=== PATIENT | male | born 1950 | race Caucasian/White ===

== ENCOUNTER 2016-06-21 17:43 | Emergency (ER) | payer OTHER, SELFPAY ==
[2016-06-21] MEDS ORDERED: ALBUTEROL SULFATE 2.5 MG/3 ML VIAL NEB ONE ×2 (17:46→18:20)
[2016-06-21 18:04] VITALS: TEMP 97.8
[2016-06-21] MEDS ORDERED: IPRATROPIUM/ALBUTEROL 3 ML VIAL NEB ONE (18:35)
[2016-06-21] MEDS ORDERED: ASPIRIN TABLET 325 MG TAB PO ONE (18:40)
[2016-06-21] MEDS ORDERED: methylPREDNISolone SODIUM SUC 125 MG/2 ML VIAL IV ONE (19:13)
--- NOTE | 2016-06-21 19:17 | ED.PDOC ---
History of Present Illness - General Chief Complaint: Chest Pain/MS Stated Complaint: chest pain,sob Time Seen by Provider: 06/21/16 19:12 Source: patient - History of Present Illness Initial Comments: Favio 66 y/o male with history of chronic smoking 1-2 ppd stated that for the last one week starting to get sob and gradually got worse today with sharp pleuritic chest pains.He stated that he has history of copd using inhalers but not getting better. Timing/Duration: other - 168 hours ago Severity: moderate Improving Factors: nothing Worsening Factors: other - smoking Associated Symptoms: chest pain, cough, shortness of breath Allergies/Adverse Reactions: Allergies NO KNOWN ALLERGY Allergy (Unverified 10/09/13 08:37) Home Medications: Ambulatory Orders Albuterol Sulfate Nebs [Proventil Nebs] 2.5 mg INH PRN 06/21/16 Azithromycin [Zithromax Z-Nito] 1 ea PO DAILY #1 pack 06/21/16 Lansoprazole [Prevacid] 30 mg PO DAILY 06/21/16 predniSONE [Prednisone] 10 mg PO BID #20 tab 06/21/16 Review of Systems - Review of Systems Constitutional: States: no symptoms reported EENTM: States: no symptoms reported Respiratory: States: see HPI, cough, wheezing Cardiology: States: see HPI Gastrointestinal/Abdominal: States: no symptoms reported Genitourinary: States: no symptoms reported Musculoskeletal: States: no symptoms reported Neurological: States: no symptoms reported Endocrine: States: no symptoms reported Hematologic/Lymphatic: States: no symptoms reported Past Medical History (General) - Patient Medical History Hx Seizures: No Hx Stroke: No Hx Dementia: No Hx Asthma: No Hx of COPD: Yes Hx Cardiac Disorders: No Hx Congestive Heart Failure: No Hx Pacemaker: No Hx Hypertension: No Hx Thyroid Disease: No Hx Diabetes: No Hx Gastroesophageal Reflux: Yes Hx Renal Disease: No Hx of HIV: No Hx MRSA: No MRSA Source:: Wound Surgical History: no surgical history - Vaccination History Hx Influenza Vaccination: No Hx Pneumococcal Vaccination: No - Social History Hx Tobacco Use: Yes - Activities of Daily Living Patient Lives Alone: No - family Grooming Ability: Independent Eating (Feeding) Ability: Independent Toileting Ability: Independent Family Medical History - Family History Mother Family History: No Known Hx Family Asthma: Yes - copd Hx Family Cancer: Yes - dad unkown type Physical Exam - Physical Exam General Appearance: Alert, No apparent distress Eye Exam: bilateral normal Ears, Nose, Throat: hearing grossly normal, normal ENT inspection, normal pharynx Neck: non-tender, full range of motion, supple Respiratory: chest non-tender, decreased breath sounds, wheezing, other - speaks in full sentences Cardiovascular/Chest: normal peripheral pulses, regular rate, rhythm, no edema, no gallop, no JVD Peripheral Pulses: radial,right: 2+, radial,left: 2+ Gastrointestinal/Abdominal: normal bowel sounds, non tender, soft, no organomegaly Back Exam: normal inspection, no CVA tenderness Extremity: normal range of motion, non-tender, normal inspection, no pedal edema , no calf tenderness Neurologic: no motor/sensory deficits, alert Skin Exam: normal color, warm/dry Lymphatic: no adenopathy Progress - Results/Orders Results/Orders: 06/21/16 18:30 EKG STAT 06/21/16 18:40 IV Care:Saline Lock per Protoc QSHIFT Telemetry .ONCE Pulse Ox Stat Laboratory Results WBC 12.5 K/mm3 (4.8-10.8) H 06/21/16 18:00 RBC 4.83 M/mm3 (4.70-6.10) 06/21/16 18:00 Hgb 14.6 gm/dL (14.0-18.0) 06/21/16 18:00 Hct 43.8 % (42.0-52.0) 06/21/16 18:00 MCV 90.8 fl (80.0-94.0) 06/21/16 18:00 MCH 30.3 pg (27.0-31.0) 06/21/16 18:00 MCHC 33.3 g/dL (33.0-37.0) 06/21/16 18:00 RDW 13.9 % (11.5-14.5) 06/21/16 18:00 Plt Count 351 K/mm3 (130-400) 06/21/16 18:00 MPV 7.9 fl (7.40-10.4) 06/21/16 18:00 Absolute Neuts (auto) 9.90 K/uL (1.8-6.8) H 06/21/16 18:00 Absolute Lymphs (auto) 1.80 K/uL (1.0-3.4) 06/21/16 18:00 Absolute Monos (auto) 0.70 K/uL (0.2-0.8) 06/21/16 18:00 Absolute Eos (auto) 0.10 K/uL (0.0-0.4) 06/21/16 18:00 Absolute Basos (auto) 0.00 K/uL (0.0-0.1) 06/21/16 18:00 Neutrophils % 79.3 % (42.0-78.0) H 06/21/16 18:00 Lymphocytes % 14.1 % (20.0-50.0) L 06/21/16 18:00 Monocytes % 5.5 % (2.0-9.0) 06/21/16 18:00 Eosinophils % 0.8 % (1.0-5.0) L 06/21/16 18:00 Basophils % 0.3 % (0.0-2.0) 06/21/16 18:00 PT 12.6 SECONDS (9.4-12.5) H 06/21/16 18:00 INR 1.120 06/21/16 18:00 PTT (SP) 36.6 SECONDS (25.1-36.5) H 06/21/16 18:00 D-Dimer, Quantitative < 230 ng/mL (0-230) 06/21/16 18:00 Sodium 138 mmol/L (135-145) 06/21/16 18:00 Potassium 4.6 mmol/L (3.6-5.0) 06/21/16 18:00 Chloride 98 mmol/L (101-111) L 06/21/16 18:00 Carbon Dioxide 31 mmol/L (21-31) 06/21/16 18:00 Anion Gap 13.6 (12-18) 06/21/16 18:00 BUN 20 mg/dL (7-18) H 06/21/16 18:00 Creatinine 1.09 mg/dL (0.6-1.3) 06/21/16 18:00 BUN/Creatinine Ratio 18.3 (10-20) 06/21/16 18:00 Random Glucose 92 mg/dL (70-105) 06/21/16 18:00 Serum Osmolality 277.9 mOsm/L (275-295) 06/21/16 18:00 Calcium 9.5 mg/dL (8.4-10.2) 06/21/16 18:00 Magnesium 1.9 mg/dL (1.8-2.5) 06/21/16 18:00 Total Bilirubin 0.6 mg/dL (0.2-1.0) 06/21/16 18:00 Direct Bilirubin 0.1 mg/dL (0-0.2) 06/21/16 18:00 Indirect Bilirubin 0.5 mg/dL (0.2-0.8) 06/21/16 18:00 AST 25 IU/L (10-42) 06/21/16 18:00 ALT 27 IU/L (10-60) 06/21/16 18:00 Alkaline Phosphatase 120 IU/L (42-121) 06/21/16 18:00 Creatine Kinase 127 IU/L (38-174) 06/21/16 18:00 CK-MB (CK-2) 6.8 ng/mL (0.0-4.4) H* 06/21/16 18:00 CK-MB (CK-2) % Not Reportable 06/21/16 18:00 Troponin I < 0.02 ng/mL (0.01-0.05) 06/21/16 19:40 B-Natriuretic Peptide 79.9 pg/ml (0-100) 06/21/16 18:00 Serum Total Protein 7.6 gm/dL (6.4-8.2) 06/21/16 18:00 Albumin 3.9 g/dl (3.2-5.5) 06/21/16 18:00 Smoking cessation was emphasized advised its the only treatment for his condition. - EKG/XRAY/CT EKG: Sinus, Tachy, no ST T wave changes Comments: heart rate 110 XRAY: chest - copd changes w/lung scarring Departure - Departure Clinical Impression: COPD exacerbation Dyspnea Qualifiers: Dyspnea type: unspecified Qualifier Code: (R06.00) Dyspnea, unspecified Time of Disposition: 20:51 Disposition: Discharge to Home or Self Care Condition: Fair Departure Forms: ED Discharge - Pt. Copy, Patient Portal Self Enrollment Instructions: DI for Chronic Obstructive Pulmonary Disease, Smoking Cessation for Older Adults: It's Not Too Late!, Serious Ways to Stop Smoking, Smoking Cessation Drugs: Nicotine Replacement Products Prescriptions: predniSONE [Prednisone] 10 mg PO BID #20 tab Azithromycin [Zithromax Z-Nito] 1 ea PO DAILY #1 pack Home Medications: Ambulatory Orders Albuterol Sulfate Nebs [Proventil Nebs] 2.5 mg INH PRN 06/21/16 Azithromycin [Zithromax Z-Nito] 1 ea PO DAILY #1 pack 06/21/16 Lansoprazole [Prevacid] 30 mg PO DAILY 06/21/16 predniSONE [Prednisone] 10 mg PO BID #20 tab 06/21/16 Additional Instructions: Continue with albuterol MDI,Follow up with primary md 06/22 call clinic for appointment ER if symptoms worsens
--- NOTE | 2016-06-21 20:16 | RAD ---
EXAM DESCRIPTION: Chest,1 View CLINICAL HISTORY: 66 years, Male, sob COMPARISON: Chest x-ray dated 10/09/2013. FINDINGS: A single frontal chest radiograph was performed. The lungs are hyperinflated with splaying of the pulmonary structures in the upper lobes and a scarlike opacity in the caudal RIGHT upper lobe. The costophrenic sulci are sharp. The cardiac silhouette, hilar regions, trachea, soft tissues and bony structures are unremarkable. In the interval since the prior study, the emphysema and RIGHT upper lobe scarring has supervened. IMPRESSION: Marked emphysema with suspected RIGHT upper lobe scarring, new since 10/09/2013. Electronically signed by: Josy Lynn MD 06/21/2016 8:15 PM CDT
[2016-06-21] MEDS ORDERED: cefTRIAXone SODIUM 1 GM VIAL IM ONE (20:49)
[2016-06-21] MEDS ORDERED: AZITHROMYCIN 250 MG TAB PO ONE (20:49)
[2016-06-21] MEDS ORDERED: LIDOCAINE 1% 10 ML VIAL INJ ONE (21:18)
[2016-06-21 22:20] VITALS: BP 131/81; O2SAT 94
== END 2016-06-21 22:20 | disposition home or self-care (01) ==
LOC: ER 17:43
DX: J44.1 Chronic obstructive pulmonary disease with (acute) exacerbation (principal); R06.00 Dyspnea, unspecified; F17.200 Nicotine dependence, unspecified, uncomplicated; K21.9 Gastro-esophageal reflux disease without esophagitis; Z79.899 Other long term (current) drug therapy

== ENCOUNTER → 2016-10-12 | Outpatient (CLI) | payer SELFPAY ==
--- NOTE | 2016-10-12 15:06 | RAD ---
EXAM DESCRIPTION: Chest,2 Views CLINICAL HISTORY: 66 years Male, COUGHING UP BLOOD COMPARISON: 21 June 2016 TECHNIQUE: PA/lateral FINDINGS: Right upper lobe parenchymal scarring is observed. Bullous emphysema is noted. The heart is within range of normal. No pleural fluid is seen. The chest is hyperexpanded. IMPRESSION: Findings of bullous emphysema are observed. There is been no significant interval change from the prior exam. No acute parenchymal pathology is detected. Electronically signed by: Christian Ludwig MD 10/12/2016 3:06 PM CDT
== END | disposition home or self-care (01) ==
LOC: RAD 10:10
PROVIDERS: ATTEND Nurse Practitioner Family
DX: R04.2 Hemoptysis (principal)

== ENCOUNTER 2017-06-04 11:10 | Emergency (ER) | payer MEDICARE ==
[2017-06-04 11:28] VITALS: TEMP 96.8
[2017-06-04] MEDS ORDERED: ASPIRIN TABLET 325 MG TAB PO ONE (11:34)
[2017-06-04] MEDS ORDERED: SODIUM CHLORIDE 0.9% (FLUSH) 10 ML SYG IV PRN (11:34)
[2017-06-04] MEDS ORDERED: methylPREDNISolone SODIUM SUC 125 MG/2 ML VIAL IV ONE (11:36)
[2017-06-04] MEDS ORDERED: IPRATROPIUM/ALBUTEROL 3 ML VIAL NEB ONE ×2 (11:36→13:34)
[2017-06-04] MEDS: NITROGLYCERIN 0.4 MG 25 EA TAB SL ONE ×3 (11:40→12:45)
--- NOTE | 2017-06-04 12:20 | ED.PDOC ---
History of Present Illness - General Chief Complaint: Chest Pain/PR Stated Complaint: chest pain Time Seen by Provider: 06/04/17 11:35 Source: patient Exam Limitations: no limitations - History of Present Illness Initial Comments: PT REPORTS ONSET OF LEFT CHEST PAIN THIS AM. HE DESCRIBES PAIN A PRESSURE WITH RADIATION TO THE BACK ASSOCIATED WITH SOB AND MILD DIAPHORESIS. PT DENIES HISTORY OF CARDIAC DISEASE. Timing/Duration: 4-6 hours Severity/Quality: severe, pressure Location: central Chest Pain Radiation: back Activities at Onset: none Prior Chest Pain/Cardiac Workup: no prior cardiac workup Improving Factors: nothing Worsening Factors: nothing Nitro Today/Relief: no nitro taken today Aspirin Treatment Today: no aspirin today Associated Symptoms: diaphoresis, shortness of breath Allergies/Adverse Reactions: Allergies NO KNOWN ALLERGY Allergy (Unverified 10/09/13 08:37) Home Medications: Ambulatory Orders Albuterol Sulfate Nebs [Proventil Nebs] 2.5 mg INH PRN 06/21/16 Azithromycin [Zithromax Z-Nito] 1 ea PO DAILY #1 pack 06/21/16 Lansoprazole [Prevacid] 30 mg PO DAILY 06/21/16 predniSONE 10 mg PO BID #20 tab 06/21/16 Prednisone 50 mg PO DAILY 4 Days #4 tab 06/04/17 Tramadol-Acetaminophen [Ultracet] 1 - 2 tab PO Q6HR PRN #30 tab 06/04/17 Review of Systems - Review of Systems Constitutional: Denies: chills, fever EENTM: Denies: nose congestion, throat pain Respiratory: States: see HPI, short of breath. Denies: cough Cardiology: States: see HPI, chest pain. Denies: palpitations, syncope Gastrointestinal/Abdominal: Denies: nausea, vomiting Genitourinary: Denies: dysuria, frequency Musculoskeletal: Denies: joint pain, joint swelling Skin: Denies: dryness, lesions Neurological: Denies: headache, numbness Endocrine: States: no symptoms reported Hematologic/Lymphatic: States: no symptoms reported Past Medical History (General) - Patient Medical History Hx Seizures: No Hx Stroke: No Hx Dementia: No Hx Asthma: No Hx of COPD: Yes Hx Cardiac Disorders: No Hx Congestive Heart Failure: No Hx Pacemaker: No Hx Hypertension: No Hx Thyroid Disease: No Hx Diabetes: No Hx Gastroesophageal Reflux: Yes Hx Renal Disease: No Hx Cancer: - thinks he might have Lung CA Hx of HIV: No Hx MRSA: No MRSA Source:: Wound Surgical History: no surgical history - Vaccination History Hx Influenza Vaccination: Yes Hx Pneumococcal Vaccination: No - Social History Hx Tobacco Use: Yes Family Medical History - Family History Mother Family History: No Known Hx Family Asthma: Yes - copd Hx Family Cancer: Yes - dad unkown type Physical Exam - Physical Exam General Appearance: Alert, Frail, No apparent distress Eyes, Ears, Nose, Throat Exam: normal ENT inspection Neck: normal inspection Respiratory: wheezing - DIFFUSE Cardiovascular/Chest: regular rate, rhythm, no murmur Gastrointestinal/Abdominal: non tender, soft Extremity: normal inspection, no pedal edema Neurologic: alert, normal mood/affect, oriented x 3 Skin Exam: normal color, warm/dry Progress - Progress Progress: 06/04/17 12:26 PT REPORTS SOME RELIEF IN PAIN AFTER 1ST SL NTG, NOW RATES PAIN AT 7/10. 06/04/17 15:44 PT REPORTS COMPLETE RELIEF AFTER TORADOL AND NORCO. WHEEZING RESOLVED AFTER 2ND DUONEB. DISCUSSED PLAN WITH PATIENT REGARDING FOLLOW UP AND OUTPATIENT CARDIOLOGY EVAL. 06/04/17 15:51 PT COUNSELED ON SMOKING CESSATION - Results/Orders Results/Orders: 06/04/17 11:34 Telemetry .ONCE Sodium Chloride 0.9% (Flush) [Saline Flush Syringe] 10 ml IV PRN PRN EKG Stat Pulse Ox Stat Laboratory Results - last 24 hr 06/04/17 06/04/17 11:41 13:34 WBC 6.4 RBC 4.74 Hgb 15.1 Hct 44.5 MCV 93.7 MCH 31.9 H MCHC 34.0 RDW 13.9 Plt Count 232 MPV 8.4 Absolute Neuts (auto) 4.70 Absolute Lymphs (auto) 1.10 Absolute Monos (auto) 0.30 Absolute Eos (auto) 0.10 Absolute Basos (auto) 0.10 Neutrophils % 74.2 Lymphocytes % 18.0 L Monocytes % 5.4 Eosinophils % 1.4 Basophils % 1.0 PT 12.2 INR 1.080 PTT (SP) 35.8 Sodium 136 Potassium 4.3 Chloride 98 L Carbon Dioxide 27 Anion Gap 15.3 BUN 17 Creatinine 0.92 BUN/Creatinine Ratio 18.5 Random Glucose 76 Serum Osmolality 272.3 L Calcium 10.0 Magnesium 1.9 Creatine Kinase 180 H CK-MB (CK-2) 6.5 H* CK-MB (CK-2) % 3.61 H Troponin I < 0.02 < 0.02 B-Natriuretic Peptide 27.3 - EKG/XRAY/CT EKG: Sinus - @97BPM, NL AXIS, RBBB, no ST T wave changes, Unchanged from - - Consult/PCP Time Called: 13:08 Consult/PCP: DR. NEVAREZ (CARDIOLOGY) Consult Reason/Comments: RECOMMEND 2ND TROP AND OUTPATIENT CARDIAC EVAL IF NEGATIVE. Departure - Departure Clinical Impression: Chest pain, COPD exacerbation Time of Disposition: 15:50 Disposition: Discharge to Home or Self Care Condition: Good Departure Forms: ED Discharge - Pt. Copy, Patient Portal Self Enrollment Instructions: DI for Chest Pain, DI for Chronic Obstructive Pulmonary Disease, Cigarette Addiction (Alternative Therapy) Referrals: Shahzad Feliciano MD [Primary Care Provider] - 1-5 Days Prescriptions: Tramadol-Acetaminophen [Ultracet] 1 - 2 tab PO Q6HR PRN #30 tab PRN Reason: Pain Prednisone 50 mg PO DAILY 4 Days #4 tab Home Medications: Ambulatory Orders Albuterol Sulfate Nebs [Proventil Nebs] 2.5 mg INH PRN 06/21/16 Azithromycin [Zithromax Z-Nito] 1 ea PO DAILY #1 pack 06/21/16 Lansoprazole [Prevacid] 30 mg PO DAILY 06/21/16 predniSONE 10 mg PO BID #20 tab 06/21/16 Prednisone 50 mg PO DAILY 4 Days #4 tab 06/04/17 Tramadol-Acetaminophen [Ultracet] 1 - 2 tab PO Q6HR PRN #30 tab 06/04/17
--- NOTE | 2017-06-04 12:36 | RAD ---
EXAM DESCRIPTION: Chest,1 View CLINICAL HISTORY: CHEST PAIN COMPARISON: 12 October 2016 TECHNIQUE: AP portable chest FINDINGS: Parenchyma scarring is observed in the right upper lobe. The chest is hyperexpanded. Findings of bullous emphysema are observed. The heart is within range of normal. No pleural fluid is identified. IMPRESSION: I see no acute cardiopulmonary pathology or significant interval change. 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
[2017-06-04 12:58] VITALS: O2SAT 98
[2017-06-04] MEDS ORDERED: KETOROLAC TROMETHAMINE INJ 30 MG/ML VIAL IV ONE (13:25)
[2017-06-04] MEDS ORDERED: HYDROcodone 10MG/APAP 325MG 1 EA TAB PO ONE (13:25)
[2017-06-04 16:04] VITALS: BP 130/84
== END 2017-06-04 16:04 | disposition home or self-care (01) ==
LOC: ER 11:10
DX: J44.1 Chronic obstructive pulmonary disease with (acute) exacerbation (principal); R07.9 Chest pain, unspecified; I45.10 Unspecified right bundle-branch block; F17.200 Nicotine dependence, unspecified, uncomplicated
CPT/HCPCS: 36415; 71045; 80048; 82550; 82553; 83880; 84484; 85025; 85610; 85730; 93005; 94640; J1885; J2930; J7620

== ENCOUNTER → 2017-12-14 | Outpatient (CLI) | payer MEDICARE ==
[~2017-12-14] MED LIST: ALBUTEROL SULFATE 2.5 MG/3 ML VIAL NEB ONE
== END ==
LOC: RESP 08:00
PROVIDERS: ATTEND Family Medicine
DX: J44.9 Chronic obstructive pulmonary disease, unspecified (principal)
CPT/HCPCS: 94060; J7611

== ENCOUNTER → 2018-01-10 | Outpatient (CLI) | payer MEDICARE ==
--- NOTE | 2018-01-10 12:53 | CT ---
Procedure: CT LUNG SCREENING Exam Date: 01/10/2018 Ordering Provider: Hank Dial Clinical Indication: PERSONAL HISTORY OF TOBACCO USE Comparison: 12/01/2017 chest x-ray Technique: Using a multislice scanner, sequential axial imaging was obtained in the thorax from the level of the thoracic inlet through the lung bases without IV contrast. A low dose protocol was utilized. 2D sagittal and coronal reconstructed images were obtained. This exam was performed according to our departmental dose optimization program which includes use of automated exposure control, adjustment of the mA and/or kV according to patient size and/or use of iterative reconstruction technique. FINDINGS: Lungs and large airways: Severe emphysema. Biapical scarring. Subsegmental atelectasis/scarring in the right upper lobe. 7 mm nodule adjacent to the right minor fissure on axial image 74. 13 mm nodule versus scarring in the left upper lobe adjacent to the fissure on axial image 39 and sagittal image 92. 8 mm solid nodule in the left upper lobe on axial image 54. Mild bronchiectasis. Subcentimeter calcified granuloma in the left lower lobe. No focal lung consolidation. Pleura: No pleural effusion. No pneumothorax. Mediastinum and mounika: Evaluation of hilar lymphadenopathy is limited without IV contrast. There are shotty mediastinal lymph nodes but none enlarged by size criteria. Heart and great vessels: The heart is not enlarged. No pericardial effusion. No aortic aneurysm. Aortic calcification. Coronary artery calcifications. Chest wall, lower neck, axillae: No axillary lymphadenopathy. Upper abdomen: Nonacute Bones: Nonacute IMPRESSION: 1. 8 mm solid nodule in the left upper lobe. Lung RADS category 4A. Further evaluation with PET/CT is recommended. 2. 7 mm nodule adjacent to the right minor fissure. 3. 13 mm nodule versus scarring in the left upper lobe. 4. Severe emphysema. Electronically signed by: Rajendra Alfred MD 01/10/2018 12:52 PM CDT
== END ==
LOC: CT 11:00
PROVIDERS: ATTEND Family Medicine
DX: Z87.891 Personal history of nicotine dependence (principal)

== ENCOUNTER → 2018-01-11 | Outpatient (CLI) | payer MEDICARE | LOC: YCFC.O 09:20 | PROVIDERS: ATTEND Family Medicine | DX: R53.83 Other fatigue (principal); R35.1 Nocturia ==

== ENCOUNTER → 2018-01-24 | Outpatient (CLI) | payer MEDICARE | LOC: YCFC.O 10:49 | PROVIDERS: ATTEND Family Medicine | DX: R73.09 Other abnormal glucose (principal) ==

== ENCOUNTER 2018-04-12 16:26 | Inpatient (IN) | payer MEDICARE, OTHER ==
[2018-04-12] MEDS ORDERED: IPRATROPIUM/ALBUTEROL 3 ML VIAL NEB ONE ×2 (16:33)
[2018-04-12] MEDS ORDERED: ALBUTEROL SULFATE 2.5 MG/3 ML VIAL NEB ONE ×4 (16:33→19:13)
--- NOTE | 2018-04-12 16:54 | RAD ---
PROCEDURE: XR Chest, 1 View CLINICAL INDICATION: The patient is 68 years old and is Male; sob TECHNIQUE: Frontal view of the chest. COMPARISON: Prior study from 12/01/2017 FINDINGS: LUNGS: The lungs are clear and free of focal consolidation. Stable RIGHT upper lobe linear scar. Lungs are hyperinflated. Previously suspected pulmonary nodule is felt to represent a hypertrophic LEFT 1st rib end. Pulmonary vascularity is normal. PLEURAL SPACE: There is NO pneumothorax. There are no pleural effusions noted. HEART: The heart size is normal. MEDIASTINUM: The mediastinal contour is unremarkable. BONES/JOINTS: No acute abnormality. IMPRESSION: The lungs are clear and free of focal consolidation. No change. Hyperinflation. RIGHT upper lobe scar. Electronically signed by: Claudy Schafer MD 04/12/2018 4:52 PM SHOE WORKER
[2018-04-12] MEDS ORDERED: AZITHROMYCIN IV 500 MG in SODIUM CHLORIDE 0.9% 250ML 250 ML IVPB ONE (17:16)
[2018-04-12] MEDS ORDERED: methylPREDNISolone SODIUM SUC 125 MG/2 ML VIAL IV ONE (17:16)
[2018-04-12] MEDS ORDERED: cefTRIAXone SODIUM 1 GM in SODIUM CHL 0.9% 50ML MIN-BAG+ 50 ML IVPB ONE (17:16)
[2018-04-12] MEDS ORDERED: MONTELUKAST 10 MG TAB PO ONE (17:21)
[2018-04-12] MEDS ORDERED: cefTRIAXone SODIUM 1 GM VIAL ONE (17:24)
[2018-04-12] MEDS ORDERED: SODIUM CHL 0.9% 50ML MIN-BAG+ 50 ML IVPB ONE (17:24)
--- NOTE | 2018-04-12 17:43 | ED.PDOC ---
History of Present Illness - General Chief Complaint: Respiratory Problem Stated Complaint: sob Time Seen by Provider: 04/12/18 16:29 Source: patient Exam Limitations: no limitations - History of Present Illness Initial Comments: the patient is 68-year-old male presenting to emergency room secondary to progressive shortness of breath over the last 24 hours. He does have known end-stage COPD and does wear 2-1/2 L of oxygen at home. He has been doing his inhalers at home. Apparently starting last night he started developing some shortness of breath. He already been having a runny nose and a mild cough and a sore throat for the last couple of days. He is reporting a productive sputum. Fevers questionable. The shortness of breath just started getting much worse this morning. Upon arrival he is in severe respiratory distress. Airway movement is minimal. Speech is limited to one word at a time. He is tripoding with significant accessory muscle use. He is very anxious. Timing/Duration: 24 hours Severity: severe Improving Factors: nothing Worsening Factors: nothing Associated Symptoms: cough, fever/chills, malaise, shortness of breath Allergies/Adverse Reactions: Allergies NO KNOWN ALLERGY Allergy (Verified 04/12/18 16:34) Home Medications: Ambulatory Orders Albuterol Sulfate Nebs [Proventil Nebs] 2.5 mg INH PRN 06/21/16 Azithromycin [Zithromax Z-Nito] 1 ea PO DAILY #1 pack 06/21/16 Lansoprazole [Prevacid] 30 mg PO DAILY 06/21/16 predniSONE 10 mg PO BID #20 tab 06/21/16 Prednisone 50 mg PO DAILY 4 Days #4 tab 06/04/17 Tramadol-Acetaminophen [Ultracet] 1 - 2 tab PO Q6HR PRN #30 tab 06/04/17 Azithromycin [Zithromax Z-Nito] 250 mg PO Q24HR #5 tab 12/01/17 Prednisone [Deltasone] 20 mg PO Q24HR #1 tab 12/01/17 Review of Systems - Review of Systems Constitutional: States: fever, malaise, weakness EENTM: States: nose congestion, throat pain Respiratory: States: cough, short of breath Cardiology: States: chest pain - his chest wall muscles are sore from coughing and breathing hard Gastrointestinal/Abdominal: States: no symptoms reported Genitourinary: States: no symptoms reported Musculoskeletal: States: no symptoms reported, see HPI Skin: States: no symptoms reported Neurological: States: anxiety Endocrine: States: no symptoms reported All other Systems: No Change from Baseline Past Medical History (General) - Patient Medical History Hx Seizures: No Hx Stroke: No Hx Dementia: No Hx Asthma: No Hx of COPD: Yes Hx Cardiac Disorders: No Hx Congestive Heart Failure: No Hx Pacemaker: No Hx Hypertension: No Hx Thyroid Disease: No Hx Diabetes: No Hx Gastroesophageal Reflux: Yes Hx Renal Disease: No Hx Cancer: - thinks he might have Lung CA Hx of HIV: No Hx MRSA: No MRSA Source:: Wound Surgical History: no surgical history - Vaccination History Hx Influenza Vaccination: Yes Hx Pneumococcal Vaccination: Yes - Social History Hx Tobacco Use: Yes Hx Alcohol Use: No Hx Substance Use: No Family Medical History - Family History Mother Family History: No Known Hx Family Asthma: Yes - copd Hx Family Cancer: Yes - dad unkown type Physical Exam - Physical Exam General Appearance: Alert, Anxious, Obvious distress Eye Exam: bilateral normal Ears, Nose, Throat: hearing grossly normal, nasal congestion, pharyngeal erythema Neck: full range of motion, supple Respiratory: respiratory distress, decreased breath sounds, accessory muscle use, rhonchi, wheezing, other - severely decreased air movement Cardiovascular/Chest: normal peripheral pulses, no edema, tachycardia - sinus tachycardia on monitors Peripheral Pulses: radial,right: 2+, radial,left: 2+, dorsalis pedis,right: 2+, dorsalis pedis,left: 2+ Gastrointestinal/Abdominal: non tender, soft Rectal Exam: deferred Back Exam: no CVA tenderness, no vertebral tenderness Extremity: non-tender, normal inspection, no pedal edema, normal capillary refill 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, alert, normal mood/affect - he is appropriately anxious, oriented x 3 Skin Exam: normal color Comments: Vital Signs - 24 hr 04/12/18 04/12/18 04/12/18 16:30 16:35 16:40 Temperature 99.9 F H Pulse Rate 120 H Pulse Rate [ 141 H pulse ox] Respiratory 40 H 40 H 40 H Rate Blood Pressure 193/101 [Left Arm] O2 Sat by Pulse 87 L 94 L Oximetry 04/12/18 17:06 Temperature Pulse Rate 130 H Pulse Rate [ pulse ox] Respiratory 22 Rate Blood Pressure [Left Arm] O2 Sat by Pulse 95 Oximetry Progress - Progress Progress: 04/12/18 17:45 the patient is 68-year-old male presenting with respiratory distress due to acute COPD exacerbation. The patient will be admitted for treatment of above. He has received 3 nebulizer treatments so far and will be receiving them every hour until decided otherwise. He is requiring additional supplemental oxygen. He has received a dose of steroids, Rocephin and azithromycin as well as a dose of Singulair. He has tested negative for the flu. He will require continued aggressive care. Admit for above care. He is moving air more easily after the initial breathing treatments but is still far from good enough to go home. - Results/Orders Results/Orders: Laboratory Tests 04/12/18 04/12/18 16:34 16:34 WBC 8.3 RBC 4.90 Hgb 15.7 Hct 46.6 MCV 95.0 H MCH 32.1 H MCHC 33.8 RDW 13.5 Plt Count 191 MPV 9.1 Absolute Neuts (auto) 6.50 Absolute Lymphs (auto) 1.10 Absolute Monos (auto) 0.70 Absolute Eos (auto) 0.00 Absolute Basos (auto) 0.10 Neutrophils % 78.3 H Lymphocytes % 13.1 L Monocytes % 7.9 Eosinophils % 0.0 L Basophils % 0.7 Sodium 137 Potassium 3.7 Chloride 97 L Carbon Dioxide 27 Anion Gap 16.7 BUN 16 Creatinine 0.93 BUN/Creatinine Ratio 17.2 Random Glucose 116 H Serum Osmolality 276.0 Calcium 9.7 Total Bilirubin 1.2 H AST 40 ALT 44 Alkaline Phosphatase 161 H Creatine Kinase 385 H* CK-MB (CK-2) 7.5 H* CK-MB (CK-2) % 1.95 Troponin I < 0.02 B-Natriuretic Peptide 69.1 Serum Total Protein 8.2 Albumin 4.5 Globulin 3.7 H Albumin/Globulin Ratio 1.2 chest x-ray shows changes of COPD but no definitive pneumonia. No pneumothorax. Departure - Departure Clinical Impression: COPD exacerbation, Respiratory distress, acute Disposition: Admit Patient Departure Forms: ED Discharge - Pt. Copy, Patient Portal Self Enrollment Referrals: Gold German MD [Primary Care Provider] - 1-2 Weeks Home Medications: Ambulatory Orders Albuterol Sulfate Nebs [Proventil Nebs] 2.5 mg INH PRN 06/21/16 Azithromycin [Zithromax Z-Nito] 1 ea PO DAILY #1 pack 06/21/16 Lansoprazole [Prevacid] 30 mg PO DAILY 06/21/16 predniSONE 10 mg PO BID #20 tab 06/21/16 Prednisone 50 mg PO DAILY 4 Days #4 tab 06/04/17 Tramadol-Acetaminophen [Ultracet] 1 - 2 tab PO Q6HR PRN #30 tab 06/04/17 Azithromycin [Zithromax Z-Nito] 250 mg PO Q24HR #5 tab 12/01/17 Prednisone [Deltasone] 20 mg PO Q24HR #1 tab 12/01/17 Decision To Admit - Decistion To Admit Decision to Admit Reason: Medical Nature Decision to Admit Date: 04/12/18 Decision to Admit Time: 17:46
[2018-04-12] MEDS ORDERED: SODIUM CHLORIDE 0.9% 250ML 250 ML ONE (17:56)
[2018-04-12] MEDS ORDERED: AZITHROMYCIN IV 500 MG VIAL IVPB ONE (17:56)
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
[2018-04-12] MEDS ORDERED: SODIUM CHLORIDE 0.9% (FLUSH) 10 ML SYG IV PRN (19:05)
[2018-04-12] MEDS ORDERED: KCL 20 MEQ/NS 1,000 ML IVS PRN (20:09)
[2018-04-12] MEDS: ALBUTEROL SULFATE 2.5 MG/3 ML VIAL NEB SCH (20:30)
[2018-04-12] MEDS: NICOTINE PATCH 14 MG TD SCH (20:57)
[2018-04-12] MEDS: ENOXAPARIN SODIUM 40 MG/0.4 ML SYG SUBCU SCH (20:58)
[2018-04-12] MEDS: IV SET AND CAP CHANGE INJ INJ SCH (20:58)
[2018-04-12] MEDS: SODIUM CHLORIDE 0.9% (FLUSH) 10 ML SYG IV SCH (20:58)
[2018-04-12] MEDS ORDERED: BUDESONIDE/FORMOTEROL 160/4.5 60 PUFF/6 GM INH INH SCH (21:00)
[2018-04-12] MEDS: IPRATROPIUM/ALBUTEROL 3 ML VIAL INH SCH (23:10)
[2018-04-13] MEDS: ACETAMINOPHEN 325 MG TAB PO PRN ×2 (01:54→07:54)
[2018-04-13] MEDS: PANTOPRAZOLE SODIUM IV 40 MG VIAL IV SCH (06:03)
--- NOTE | 2018-04-13 07:16 | RAD ---
CHEST 04/13/2018. CLINICAL HISTORY: Pneumonia. COMPARISON: 04/12/2018. TECHNIQUE: Frontal and lateral Chest. FINDINGS: Right upper lobe scarring is stable. The right and left hemidiaphragm are flattened with increased retrosternal airspace consistent with chronic obstructive pulmonary disease. No airspace infiltrate. No pleural fluid or pneumothorax. The heart is normal in size. Normal pulmonary vascularity. No pulmonary edema. Mild aortic atherosclerosis. Mild thoracic spondylosis. Generalized decreased bone density. Unremarkable soft tissues. IMPRESSION: 1. COPD. Chronic right upper lobe scarring. No new acute chest disease Electronically signed by: Rocio Thornton DO 04/13/2018 7:15 AM HORSE BUYER
[2018-04-13] MEDS ORDERED: cefTRIAXone SODIUM 1 GM VIAL ONE (07:39)
[2018-04-13] MEDS ORDERED: SODIUM CHLORIDE 0.9% 50ML 50 ML ONE (07:40)
[2018-04-13] MEDS: cefTRIAXone SODIUM 1 GM in SODIUM CHL 0.9% 50ML MIN-BAG+ 50 ML IVPB SCH (07:47)
[2018-04-13] MEDS: IPRATROPIUM/ALBUTEROL 3 ML VIAL INH SCH ×4 (08:16→20:15)
[2018-04-13] MEDS ORDERED: SODIUM CHLORIDE 0.9% 500ML 500 ML ONE (08:48)
[2018-04-13] MEDS ORDERED: AZITHROMYCIN IV 500 MG VIAL IVPB ONE ×2 (08:48→08:57)
[2018-04-13] MEDS ORDERED: SODIUM CHLORIDE 0.9% 250ML 250 ML ONE (08:57)
[2018-04-13] MEDS: AZITHROMYCIN IV 500 MG in SODIUM CHLORIDE 0.9% 250ML 250 ML IVPB SCH (09:01)
[2018-04-13] MEDS: NICOTINE PATCH 14 MG TD SCH (09:02)
[2018-04-13] MEDS: SODIUM CHLORIDE 0.9% (FLUSH) 10 ML SYG IV SCH ×2 (09:15→21:07)
[2018-04-13] MEDS: ALBUTEROL SULFATE 2.5 MG/3 ML VIAL NEB PRN ×2 (10:15→15:00)
[2018-04-13] MEDS: methylPREDNISolone SODIUM SUC 125 MG/2 ML VIAL IV SCH ×2 (12:32→17:32)
--- NOTE | 2018-04-13 13:50 | PN ---
SUPERVISING PHYSICIAN: Damián Aj MD DATE: 04/13/18 SUBJECTIVE: The patient is sitting up in bed. He actually feels much better today than he has been. He is still short of breath, but is breathing much better than yesterday. He denies chest pain, nausea, vomiting, diarrhea or constipation. OBJECTIVE: VITAL SIGNS: Temperature 98. Heart rate 98. Blood pressure 153/83. Respiratory rate 22. O2 saturation 96% on 2 liters nasal cannula. RESPIRATORY: Expiratory wheezing noted through most lung munoz. He is also diminished throughout, but much improved since yesterday. He is tachypneic and has to speak in short phrases due to his dyspnea. CARDIAC: Regular rate and rhythm. GASTROINTESTINAL: Abdomen is soft, nondistended, nontender. Bowel sounds are positive. NEUROLOGIC: Awake, alert and oriented times three. LABORATORY: WBCs 8.3. He does have a left shift on differential. Hemoglobin 13.4, hematocrit 39.8. Electrolytes are basically within normal limits. AST 43, alkaline phosphatase has improved to 140. Bilirubin has normalized to 0.5. Blood sugar 205. Chest x-ray shows chronic obstructive pulmonary disease with chronic upper lobe scarring. No new chest disease. All other labs and films have been reviewed via the EMR. ASSESSMENT: 1. Exacerbation of chronic obstructive pulmonary disease with concerns for community acquired pneumonia in a chronic smoker. 2. Tobacco abuse with a 50 plus pack year history. 3. Gastroesophageal reflux disease. 4. Hyperbilirubinemia, now normalized. 5. Elevated liver function tests. His alkaline phosphatase has improved slightly and his AST has slightly worsened to 43 overnight. PLAN: We will continue present supportive care. Yesterday, the patient was requiring almost continuous nebulizer treatments and those have been decreased back to 2 hours. He actually has breath sounds this morning. We again discussed smoking cessation. I will also monitor his sputum culture. He also said the nicotine patch is working and we will continue with that. He has a followup with Dr. Mcguire, his outpatient receptionist, as well as Dr. Jacques, his adult probation officer. I have repeated his lab in the morning. I have tapered down his Solu-Medrol. He has also gotten a Restoril for sleep aid. I have also repeated his cardiac enzymes as his CK-MB was slightly elevated yesterday. We will recheck that. Otherwise, we will continue to monitor the patient closely and follow as needed. Dr. Aj is the collaborating physician and available for consultation. #[id number] [facility]
[2018-04-13] MEDS: BUDESONIDE/FORMOTEROL 160/4.5 60 PUFF/6 GM INH INH SCH (20:15)
[2018-04-13] MEDS: ALBUTEROL SULFATE 2.5 MG/3 ML VIAL NEB SCH (20:15)
[2018-04-13] MEDS: ENOXAPARIN SODIUM 40 MG/0.4 ML SYG SUBCU SCH (21:07)
[2018-04-14] MEDS: ALBUTEROL SULFATE 2.5 MG/3 ML VIAL NEB PRN (00:15)
[2018-04-14] MEDS: methylPREDNISolone SODIUM SUC 125 MG/2 ML VIAL IV SCH ×2 (00:18→06:09)
[2018-04-14] MEDS: TEMAZEPAM 15 MG CAP PO PRN ×2 (00:18→22:49)
[2018-04-14] MEDS: BENZOCAINE-MENTH LOZ (CEPACOL) 1 EA LOZ MT PRN (00:18)
[2018-04-14] MEDS: PANTOPRAZOLE SODIUM IV 40 MG VIAL IV SCH (06:10)
--- NOTE | 2018-04-14 07:11 | RAD ---
EXAM DESCRIPTION: Chest,2 Views CLINICAL HISTORY: 68 years Male, copd COMPARISON: 04/13/[address] chest 01/10/2018 IMPRESSION: Heart size and pulmonary vascularity are within normal limits. Severe emphysema. Linear scarring in the right upper lung zone again demonstrated. No confluent airspace consolidation, pleural effusion, or pneumothorax. Pulmonary nodules described on the recent chest CT not well seen radiographically. No acute osseous abnormality. Electronically signed by: Sreekanth Medina MD 04/14/2018 7:10 AM CELERY PACKER
[2018-04-14] MEDS ORDERED: SODIUM CHL 0.9% 50ML MIN-BAG+ 50 ML IVPB ONE (07:18)
[2018-04-14] MEDS ORDERED: SODIUM CHLORIDE 0.9% 250ML 250 ML ONE (07:18)
[2018-04-14] MEDS ORDERED: AZITHROMYCIN IV 500 MG VIAL IVPB ONE (07:19)
[2018-04-14] MEDS ORDERED: cefTRIAXone SODIUM 1 GM VIAL ONE (07:19)
[2018-04-14] MEDS: cefTRIAXone SODIUM 1 GM in SODIUM CHL 0.9% 50ML MIN-BAG+ 50 ML IVPB SCH (07:36)
[2018-04-14] MEDS: IPRATROPIUM/ALBUTEROL 3 ML VIAL INH SCH ×4 (08:08→20:37)
[2018-04-14] MEDS: BUDESONIDE/FORMOTEROL 160/4.5 60 PUFF/6 GM INH INH SCH ×2 (08:09→20:37)
[2018-04-14] MEDS: AZITHROMYCIN IV 500 MG in SODIUM CHLORIDE 0.9% 250ML 250 ML IVPB SCH (08:25)
[2018-04-14] MEDS: NICOTINE PATCH 14 MG TD SCH (08:26)
[2018-04-14] MEDS: SODIUM CHLORIDE 0.9% (FLUSH) 10 ML SYG IV SCH ×2 (08:26→20:33)
--- NOTE | 2018-04-14 10:46 | PN ---
SUPERVISING PHYSICIAN: Damián Aj MD DATE: 04/14/18 SUBJECTIVE: The patient is sitting up in bed. He feels much better. He is much less short of breath. He actually got to sleep last night without having to have multiple breathing treatments. He also said he felt that the nicotine patches were working quite well. He felt like he could stop smoking after discharge. Otherwise, he denies chest pain, nausea, vomiting, diarrhea or constipation. OBJECTIVE: VITAL SIGNS: Temperature 97.9. Heart rate runs between 94 and 120. Blood pressure 133/90. Respiratory rate 22. O2 saturation 92% on 2 liters nasal cannula. RESPIRATORY: Scattered rhonchi throughout with a few scattered expiratory wheezes in the apices. He is diminished at the bases. He is tachypneic. He continues to only be able to speak in short phrases due to his dyspnea. CARDIAC: Regular, tachycardic rate and regular rhythm. GASTROINTESTINAL: Abdomen is soft, nondistended, nontender. Bowel sounds are positive. NEUROLOGIC: Awake, alert and oriented times three. LABORATORY: WBCs stable at 8,500, hemoglobin 13.7, hematocrit 41.1. He continues to have a left shift on differential. Electrolytes are basically within normal limits. AST has gone up slightly to 67. ALT now elevated at 71. Alkaline phosphatase is 140. Creatinine kinase is improved to 298, CK-MB 5.3. Sputum culture is still pending. Blood culture also pending. Chest x-ray shows heart size and pulmonary vascularity within normal limits with severe emphysema. No confluent airspace consolidation, pleural effusion or pneumothorax. All other labs and films have been reviewed via the EMR. ASSESSMENT: 1. Exacerbation of chronic obstructive pulmonary disease with concerns for community acquired pneumonia in a chronic smoker. 2. Tobacco abuse with a 50 plus pack year history. 3. Gastroesophageal reflux disease. 4. Hyperbilirubinemia, now normalized. 5. Elevated liver function tests. His liver functions continue to be elevated and have have slightly worsened overnight. PLAN: We will continue present supportive care. I have tapered down his Solu- Medrol and hopefully tomorrow he can be changed to oral prednisone. I have also ordered him to ambulate in the [place] several times. He does have a followup appointment with Dr. Mcguire, network associate, in the next month or so and he will need to followup on his liver enzymes at that time. He also has an appointment with Dr. Jacques, his brick stacker. I have given him the information for his nicotine patch and we again discussed tobacco cessation. I will hold on his lab and chest x-ray for now as they have somewhat stabilized. We will continue to monitor the patient closely and follow as needed. Dr. Aj is the collaborating physician and available for consultation. [facility][id number] [facility]
[2018-04-14] MEDS: methylPREDNISolone SODIUM SUC 40 MG/ML VIAL IV SCH ×3 (11:20→23:49)
[2018-04-14] MEDS: ACETAMINOPHEN 325 MG TAB PO PRN (15:51)
[2018-04-14] MEDS ORDERED: PANTOPRAZOLE SODIUM TAB 40 MG PO ONE (19:10)
[2018-04-14] MEDS: ENOXAPARIN SODIUM 40 MG/0.4 ML SYG SUBCU SCH (20:31)
[2018-04-14] MEDS: ALBUTEROL SULFATE 2.5 MG/3 ML VIAL NEB SCH (20:37)
[2018-04-15] MEDS: methylPREDNISolone SODIUM SUC 40 MG/ML VIAL IV SCH ×4 (05:30→23:38)
[2018-04-15] MEDS: PANTOPRAZOLE SODIUM TAB 40 MG PO SCH (06:01)
[2018-04-15] MEDS ORDERED: SODIUM CHLORIDE 0.9% 250ML 250 ML ONE (06:51)
[2018-04-15] MEDS ORDERED: cefTRIAXone SODIUM 1 GM VIAL ONE (06:52)
[2018-04-15] MEDS ORDERED: SODIUM CHL 0.9% 50ML MIN-BAG+ 50 ML IVPB ONE (06:52)
[2018-04-15] MEDS ORDERED: AZITHROMYCIN IV 500 MG VIAL IVPB ONE (06:53)
[2018-04-15] MEDS: cefTRIAXone SODIUM 1 GM in SODIUM CHL 0.9% 50ML MIN-BAG+ 50 ML IVPB SCH (07:42)
[2018-04-15] MEDS: NICOTINE PATCH 14 MG TD SCH (08:17)
[2018-04-15] MEDS: AZITHROMYCIN IV 500 MG in SODIUM CHLORIDE 0.9% 250ML 250 ML IVPB SCH (08:17)
[2018-04-15] MEDS: SODIUM CHLORIDE 0.9% (FLUSH) 10 ML SYG IV SCH ×2 (08:17→20:36)
[2018-04-15] MEDS: IPRATROPIUM/ALBUTEROL 3 ML VIAL INH SCH ×4 (08:21→20:42)
[2018-04-15] MEDS: BUDESONIDE/FORMOTEROL 160/4.5 60 PUFF/6 GM INH INH SCH (08:21)
[2018-04-15] MEDS: ACETAMINOPHEN 325 MG TAB PO PRN ×2 (10:21→23:01)
[2018-04-15] MEDS: ENOXAPARIN SODIUM 40 MG/0.4 ML SYG SUBCU SCH (20:36)
[2018-04-15] MEDS: IV SET AND CAP CHANGE INJ INJ SCH (20:37)
[2018-04-15] MEDS: BUDESONIDE NEBS 0.5 MG/2 ML VIAL NEB SCH (20:42)
[2018-04-15] MEDS: BENZOCAINE-MENTH LOZ (CEPACOL) 1 EA LOZ MT PRN (20:42)
[2018-04-15] MEDS: ALBUTEROL SULFATE 2.5 MG/3 ML VIAL NEB SCH (20:42)
--- NOTE | 2018-04-15 21:04 | PN ---
DATE: 04/15/18 SUPERVISING PHYSICIAN: Jermain Aj M.D. SUBJECTIVE: The patient is actually walking around in his room and showing to be obviously short of breath even with oxygen. He has been afebrile. OBJECTIVE: Temperature 98, pulse 116, blood pressure 164/90, respirations 20, satting 98% on nasal cannula at 2 liters at rest. Weight is 57.2 kg. GENERAL: The patient appears to be without any acute distress, although he does show obviously some shortness of breath on exertion. He is alert. CHEST: Lung sounds are diminished bilaterally towards the bases. There is no rhonchi noted but there are some very faint expiratory wheezes heard in both apices. HEART: Regular rate and rhythm. ABDOMEN: Soft, non-tender. Positive bowel sounds. EXTREMITIES: Without any clubbing, cyanosis or edema. NEUROLOGIC: He is alert and oriented times three. No additional laboratory studies today. No additional chest radiographic studies. ASSESSMENT: 1. Exacerbation of chronic obstructive pulmonary disease with concerns for community acquired pneumonia in a chronic smoker. 2. Tobacco abuse with a 50 plus pack year history. 3. Gastroesophageal reflux disease. 4. Hyperbilirubinemia, now normalized. 5. Elevated liver function tests. His liver functions continue to be elevated but showing to be fairly stable. PLAN: Will continue current plan with antibiotic coverage with azithromycin and Rocephin. Given that he still continues to have some shortness of breath and wheezing, will continue with Solu-Medrol 40 mg every 6 hours. He has been on Symbicort, however his ability to utilize an inhaler is minimal, so therefore will change him to Pulmicort in efforts to hopefully stabilize his COPD and show some improvement. Will hopefully be able to transition to p.o. prednisone tomorrow or Wednesday. He will need followup with Dr. Mcguire after discharge from the hospital in regard to his elevated liver enzymes as well as he will need close followup appointment with Dr. Russo, his community relations assistant. He continues to be encouraged to stop smoking and seems to be successful with the nicotine patch. Will go ahead and repeat a chest film in the morning and hopefully be able to either discharge tomorrow or Wednesday. Until he can transition to outpatient management will continue to monitor and treat as needed. #[id number] [facility]
[2018-04-15] MEDS: TEMAZEPAM 15 MG CAP PO PRN (23:01)
[2018-04-15] MEDS ORDERED: ALPRAZolam 0.5 MG TAB ONE (23:06)
[2018-04-15] MEDS: ALPRAZolam 0.25 MG TAB PO PRN (23:09)
[2018-04-16] MEDS: methylPREDNISolone SODIUM SUC 40 MG/ML VIAL IV SCH ×3 (06:01→21:45)
[2018-04-16] MEDS: PANTOPRAZOLE SODIUM TAB 40 MG PO SCH (06:01)
[2018-04-16] MEDS: BUDESONIDE NEBS 0.5 MG/2 ML VIAL NEB SCH ×2 (07:52→20:06)
[2018-04-16] MEDS: IPRATROPIUM/ALBUTEROL 3 ML VIAL INH SCH ×4 (07:52→20:06)
[2018-04-16] MEDS ORDERED: cefTRIAXone SODIUM 1 GM VIAL ONE (07:53)
[2018-04-16] MEDS ORDERED: SODIUM CHL 0.9% 50ML MIN-BAG+ 50 ML IVPB ONE (07:53)
[2018-04-16] MEDS: cefTRIAXone SODIUM 1 GM in SODIUM CHL 0.9% 50ML MIN-BAG+ 50 ML IVPB SCH (08:24)
[2018-04-16] MEDS ORDERED: AZITHROMYCIN IV 500 MG VIAL IVPB ONE (09:30)
[2018-04-16] MEDS ORDERED: SODIUM CHLORIDE 0.9% 250ML 250 ML ONE (09:30)
[2018-04-16] MEDS: AZITHROMYCIN IV 500 MG in SODIUM CHLORIDE 0.9% 250ML 250 ML IVPB SCH (09:37)
[2018-04-16] MEDS: NICOTINE PATCH 14 MG TD SCH (09:43)
[2018-04-16] MEDS: SODIUM CHLORIDE 0.9% (FLUSH) 10 ML SYG IV SCH ×2 (09:43→20:49)
[2018-04-16] MEDS: ALBUTEROL SULFATE 2.5 MG/3 ML VIAL NEB SCH (20:09)
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
[2018-04-16] MEDS: ENOXAPARIN SODIUM 40 MG/0.4 ML SYG SUBCU SCH (20:48)
[2018-04-16] MEDS ORDERED: ALPRAZolam 0.5 MG TAB ONE (21:30)
[2018-04-16] MEDS: TEMAZEPAM 15 MG CAP PO PRN (21:45)
[2018-04-16] MEDS: ALPRAZolam 0.25 MG TAB PO PRN (21:46)
[2018-04-17] MEDS: methylPREDNISolone SODIUM SUC 40 MG/ML VIAL IV SCH ×3 (05:41→20:51)
[2018-04-17] MEDS: PANTOPRAZOLE SODIUM TAB 40 MG PO SCH (06:05)
[2018-04-17] MEDS ORDERED: SODIUM CHLORIDE 0.9% 250ML 250 ML ONE (07:25)
[2018-04-17] MEDS ORDERED: SODIUM CHL 0.9% 50ML MIN-BAG+ 50 ML IVPB ONE (07:25)
[2018-04-17] MEDS ORDERED: cefTRIAXone SODIUM 1 GM VIAL ONE (07:26)
[2018-04-17] MEDS ORDERED: AZITHROMYCIN IV 500 MG VIAL IVPB ONE (07:26)
[2018-04-17] MEDS: IPRATROPIUM/ALBUTEROL 3 ML VIAL INH SCH ×4 (07:56→19:28)
[2018-04-17] MEDS: BUDESONIDE NEBS 0.5 MG/2 ML VIAL NEB SCH ×2 (07:56→21:01)
--- NOTE | 2018-04-17 08:42 | RAD ---
EXAM DESCRIPTION: Chest,2 Views CLINICAL HISTORY: 68 years Male copd COMPARISON: Portable chest 04/14/2018 TECHNIQUE: A single frontal projection of the chest is obtained. FINDINGS: Heart: Transverse diameter of the heart is diminished due to severe bilateral centrilobular emphysema. . Vasculature: There is mild atherosclerosis and [] tortuosity of the aorta. The pulmonary vascularity is normal. Mediastinum: Unremarkable otherwise. No evidence of mass or adenopathy. Lungs: Noted again are findings of diffuse centrilobular emphysema with particularly prominent bullous changes in the upper lobes. There is fibrotic scarring in the right upper lobe. No new acute consolidation is seen. Pleural spaces: There are no pleural effusions. There are no pneumothoraces. Osseous structures: There is no evidence of acute fracture, osseous destruction or osteoblastic lesions. [] Tubes and catheters: None. Upper abdomen: No acute findings. . IMPRESSION: No acute cardiopulmonary abnormality. [] Remainder of findings as described above. Electronically signed by: Sandra Berry MD 04/17/2018 8:40 AM ASSISTANT ACCOUNT EXECUTIVE
[2018-04-17] MEDS: cefTRIAXone SODIUM 1 GM in SODIUM CHL 0.9% 50ML MIN-BAG+ 50 ML IVPB SCH (09:13)
[2018-04-17] MEDS: NICOTINE PATCH 14 MG TD SCH (09:14)
[2018-04-17] MEDS: SODIUM CHLORIDE 0.9% (FLUSH) 10 ML SYG IV SCH ×2 (09:55→20:50)
[2018-04-17] MEDS: AZITHROMYCIN IV 500 MG in SODIUM CHLORIDE 0.9% 250ML 250 ML IVPB SCH (09:56)
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
[2018-04-17] MEDS: ENOXAPARIN SODIUM 40 MG/0.4 ML SYG SUBCU SCH (20:50)
[2018-04-18] MEDS ORDERED: ALPRAZolam 0.5 MG TAB ONE (01:08)
[2018-04-18] MEDS: ALPRAZolam 0.25 MG TAB PO PRN (01:10)
[2018-04-18] MEDS: PANTOPRAZOLE SODIUM TAB 40 MG PO SCH (05:54)
[2018-04-18] MEDS ORDERED: cefTRIAXone SODIUM 1 GM VIAL ONE (07:10)
[2018-04-18] MEDS ORDERED: AZITHROMYCIN IV 500 MG VIAL IVPB ONE (07:10)
[2018-04-18] MEDS ORDERED: SODIUM CHL 0.9% 50ML MIN-BAG+ 50 ML IVPB ONE (07:10)
[2018-04-18] MEDS ORDERED: SODIUM CHLORIDE 0.9% 250ML 250 ML ONE (07:10)
[2018-04-18] MEDS: cefTRIAXone SODIUM 1 GM in SODIUM CHL 0.9% 50ML MIN-BAG+ 50 ML IVPB SCH (07:25)
[2018-04-18] MEDS: NICOTINE PATCH 14 MG TD SCH (08:26)
[2018-04-18] MEDS: SODIUM CHLORIDE 0.9% (FLUSH) 10 ML SYG IV SCH ×2 (08:26→20:49)
[2018-04-18] MEDS: BUDESONIDE NEBS 0.5 MG/2 ML VIAL NEB SCH ×2 (08:30→19:23)
[2018-04-18] MEDS: IPRATROPIUM/ALBUTEROL 3 ML VIAL INH SCH ×4 (08:30→19:23)
[2018-04-18] MEDS: AZITHROMYCIN IV 500 MG in SODIUM CHLORIDE 0.9% 250ML 250 ML IVPB SCH (08:31)
[2018-04-18] MEDS: predniSONE 20 MG TAB PO SCH (09:40)
[2018-04-18] MEDS: levoFLOXacin 500 MG TAB PO SCH (09:40)
--- NOTE | 2018-04-18 15:13 | PN ---
COLLABORATING PHYSICIAN: Louis Friedman MD DATE: 04/18/18 SUBJECTIVE: The patient states he feels pretty decent, but he still has episodes where he gets a little bit dyspneic and feels like he requires oxygen. OBJECTIVE: VITAL SIGNS: Blood pressure 136/87. Heart rate 90. Respiratory rate 18. Temperature 98.0. Oxygen saturation 92%. GENERAL: Mr. Chen is a 68-year-old male patient in no active distress currently. NEUROLOGIC: Alert and oriented. LUNGS: Diminished, but no active wheezing. CARDIOVASCULAR: Regular rate and rhythm. Normal S1, S2. ABDOMEN: Soft. Positive bowel sounds. EXTREMITIES: Lower extremities with no pulses 2+. Capillary refill is less than 2 seconds. ASSESSMENT: 1. Chronic obstructive pulmonary disease exacerbation. 2. Continuous nicotine dependency, however, he states that he quit for New Year's resolution. 3. Gastroesophageal reflux disease. 4. Transaminitis. PLAN: The patient has been taken off of IV steroids and will start on p.o. steroids today. I am also changing his antibiotics to p.o. We will see how he does over the next 24 hours. If he is stable, we will probably discharge tomorrow with titrating dose of p.o. steroids and continue antibiotic therapy. He does have a gang ripsaw operator, Dr. Jacques, he is supposed to see on 04/25/18, he states. #[id number] [facility]
[2018-04-18] MEDS: IV SET AND CAP CHANGE INJ INJ SCH (20:47)
[2018-04-18] MEDS: ENOXAPARIN SODIUM 40 MG/0.4 ML SYG SUBCU SCH (20:49)
[2018-04-18] MEDS: TEMAZEPAM 15 MG CAP PO PRN (22:07)
[2018-04-19] MEDS ORDERED: ALPRAZolam 0.5 MG TAB ONE (01:12)
[2018-04-19] MEDS: ALPRAZolam 0.25 MG TAB PO PRN (01:16)
[2018-04-19 02:27] VITALS: TEMP 97.8
[2018-04-19] MEDS: PANTOPRAZOLE SODIUM TAB 40 MG PO SCH (06:00)
[2018-04-19] MEDS: IPRATROPIUM/ALBUTEROL 3 ML VIAL INH SCH (07:48)
[2018-04-19] MEDS: BUDESONIDE NEBS 0.5 MG/2 ML VIAL NEB SCH (07:48)
[2018-04-19] MEDS: levoFLOXacin 500 MG TAB PO SCH (08:44)
[2018-04-19] MEDS: SODIUM CHLORIDE 0.9% (FLUSH) 10 ML SYG IV SCH (08:45)
[2018-04-19] MEDS: NICOTINE PATCH 14 MG TD SCH (08:45)
[2018-04-19] MEDS: predniSONE 20 MG TAB PO SCH (08:45)
[2018-04-19 11:03] VITALS: BP 128/87; O2SAT 94
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
== END 2018-04-19 11:04 | disposition home or self-care (01) | DRG 192 ==
LOC: ER 16:26 → MS 18:35
PROVIDERS: ADMIT Family Medicine; ATTEND Nurse Practitioner Acute Care
DX: J43.2 Centrilobular emphysema (principal); K21.9 Gastro-esophageal reflux disease without esophagitis; F17.210 Nicotine dependence, cigarettes, uncomplicated; E80.6 Other disorders of bilirubin metabolism; Z99.81 Dependence on supplemental oxygen

== ENCOUNTER 2018-06-08 05:21 | Day surgery (SDC) | payer OTHER ==
[2018-06-08] MEDS ORDERED: LACTATED RINGERS 1,000 ML ONE (07:22)
[2018-06-08] MEDS ORDERED: LACTATED RINGERS 1,000 ML IVS ONE (07:30)
[2018-06-08 07:41] VITALS: BP 147/87
[2018-06-08 09:45] VITALS: TEMP 97.6; O2SAT 97
[2018-06-08] MEDS ORDERED: PROPOFOL 200 MG/20 ML VIAL IV ONE (10:00)
--- NOTE | 2018-06-08 10:09 | OP ---
DATE OF PROCEDURE: 06/08/18 PREPROCEDURE DIAGNOSIS: 1. Heme positive stool. 2. This is the patient's first colonoscopy. POSTPROCEDURE DIAGNOSIS: 1. Colonic polyps. 2. Internal hemorrhoids. PROCEDURE: 1. Colonoscopy with snare polypectomy. SURGEON: Jermain Mcguire MD. SEDATION: Monitored anesthesia care. ESTIMATED BLOOD LOSS: 0 mL. PROCEDURE: Informed consent was obtained prior to sedation. The preprocedure cardiopulmonary assessment was satisfactory. The patient was brought to the Endoscopy Suite and placed in the left lateral decubitus position. The patient was then sedated by the anesthesia team. Digital rectal and perianal exams were normal. The tip of the Olympus colonoscope was inserted into the rectum and advanced under direct visualization to the cecum as identified by the presence of the appendiceal orifice and ileocecal valve. Preparation of the colon was good. Upon reaching the cecum, the endoscope was slowly withdrawn from the patient with careful attention paid to the entire colonic mucosa. There were 3 colonic polyps in the hepatic flexure and sigmoid colon. These were semi- pedunculated, ranging in size from 8 to 15 mm. These were all resected with hot snare polypectomy and retrieved for pathology. There was no blood loss. The remaining examination of the colon was normal aside from some scattered diverticulosis in the sigmoid colon . Retroflexed view of the anal verge showed medium sized, non-bleeding internal hemorrhoids. The endoscope was then withdrawn from the patient and the procedure terminated. RECOMMENDATION: 1. Discharge the patient home with escort. 2. Followup pathology. 3. Resume regular diet. 4. Resume previous medications. 5. Surveillance colonoscopy in 3 years' time. 6. Followup in my office as previously scheduled. #[id number] [facility]
== END 2018-06-08 09:40 | disposition home or self-care (01) ==
LOC: AMB 05:21
PROVIDERS: ATTEND Internal Medicine Gastroenterology
DX: R19.5 Other fecal abnormalities (principal); D12.3 Benign neoplasm of transverse colon; D12.5 Benign neoplasm of sigmoid colon; K64.8 Other hemorrhoids; J44.9 Chronic obstructive pulmonary disease, unspecified; F17.210 Nicotine dependence, cigarettes, uncomplicated; K21.9 Gastro-esophageal reflux disease without esophagitis; Z99.81 Dependence on supplemental oxygen; Z79.899 Other long term (current) drug therapy
CPT/HCPCS: 00811; 45385; J3490; J7120

== ENCOUNTER → 2018-07-20 | Outpatient (CLI) | payer MEDICARE ==
--- NOTE | 2018-07-21 10:43 | CT ---
Procedure: CT LUNG SCREENING Exam Date: 07/20/2018. Ordering Provider: Hank Dial Clinical Indication: 3 MONTH F/U This patient meets eligibility criteria for low-dose CT lung cancer screening. Comparison: CT lung screening low-dose April 19, 2018 Technique: Using a multislice scanner, sequential helical axial imaging was obtained in the thorax, 2.5 mm thickness, 2.5 mm separation, from the level of the thoracic inlet through the lung bases without IV contrast. A low dose protocol was utilized for BMI less than 30: BMI: 23. CTDI: 1.76 mGy. 120. kVp. 45 mA. DLP: 73.29 mGy centimeters. 2D sagittal and coronal reconstructed images, 6.0 mm thickness, were obtained. This exam was performed according to our departmental dose optimization program which includes use of automated exposure control, adjustment of the mA and/or kV according to patient size and/or use of iterative reconstruction technique. Nodule measurements under 10 mm are given as mean value of 3 axes diameters. FINDINGS: Lungs and large airways: Stable 6 mm solid nodule in the lateral left upper lobe subpleural location on axial series 2, image 52. Stable large pleural parenchymal scarring in the anterior and medial right upper lobe. Stable perifissural nodule in the lateral horizontal fissure. Stable perifissural nodule abutting the pleura in the superior left major fissure laterally. Stable bilateral emphysematous changes. Resolution of nodular infiltrate and atelectasis in the posterior recess of the left lower lobe. No new nodules, masses, or focal infiltrates. Pleura and space: Negative and unchanged. Mediastinum and mounika: evaluation limited by low dose technique and lack of IV contrast. Stable small nodes in the mediastinum. Heart and great vessels: Unchanged atherosclerotic calcifications. Chest wall, lower neck, axillae: Evaluation also limited by same factors as described above. Unremarkable and stable. Upper abdomen: Included peritoneal space is negative. Stable abdominal atherosclerotic calcifications. Osseous structures: Evaluation limited by low dose MIP technique. No significant changes. IMPRESSION: Resolution of nodular-like infiltrate or atelectasis in the posterior recess of the left lower lobe. Stable 6 mm solid nodule in the lateral left upper lobe. Stable bilateral superior fissural nodules or thickening. No change in pleural thickening. [facility] Best Practice recommendations: Please see below for Lung RADS category and FOLLOW-UP.* *Lung RADS category CATEGORY 2- Nodules with a very low likelihood (less than 1%) of becoming a clinically active cancer due to size or lack of growth. Nodules: Solid or part solid nodule(s) less than 6mm, new solid nodule less than 4mm. Ground glass nodule(s) less than 20mm or unchanged or slow growing ground glass nodule 20mm or greater. Cat 3 or 4 nodule unchanged for 3 or more months. FOLLOW-UP: Continue annual screening with a Low Dose Chest CT in 12 months for re-evaluation. Electronically signed by: Gael Polo MD 07/21/2018 10:39 AM CDT
== END ==
LOC: CT 14:00
PROVIDERS: ATTEND Family Medicine
DX: J44.9 Chronic obstructive pulmonary disease, unspecified (principal); R91.8 Other nonspecific abnormal finding of lung field; Z87.891 Personal history of nicotine dependence

== ENCOUNTER → 2019-01-31 | Outpatient (CLI) | payer MEDICARE | LOC: LAB.O 09:09 | PROVIDERS: ATTEND Family Medicine | DX: Z00.00 Encounter for general adult medical examination without abnormal findings (principal); R74.8 Abnormal levels of other serum enzymes; R53.83 Other fatigue; R35.0 Frequency of micturition; E55.9 Vitamin D deficiency, unspecified; Z13.220 Encounter for screening for lipoid disorders ==

== ENCOUNTER → 2019-08-01 | Outpatient (CLI) | payer MEDICARE | LOC: YCFC.O 14:56 | PROVIDERS: ATTEND Family Medicine | DX: Z12.5 Encounter for screening for malignant neoplasm of prostate (principal) | CPT/HCPCS: 36415; G0103 ==

== ENCOUNTER → 2019-08-16 | Outpatient (CLI) | payer MEDICARE, OTHER ==
--- NOTE | 2019-08-16 18:26 | CT ---
Procedure: CT LUNG SCREENING Exam Date: August 16, 2019. Ordering Provider: Hank Dial Clinical Indication: tobacco abuse tab This patient meets eligibility criteria for low-dose CT lung cancer screening. Comparison: Low-dose CT lung cancer screening examination July 2018. Technique: Using a multislice scanner, sequential helical axial imaging was obtained in the thorax, 2.5 mm thickness, 2.5 mm separation, from the level of the thoracic inlet through the lung bases without IV contrast. A low dose protocol was utilized for BMI less than 30: BMI: 19.9. CTDI: 1.76 mGy. 120. kVp. 45 mA. DLP 72 mGy-cm. 2D sagittal and coronal reconstructed images, 6.0 mm thickness, were obtained. This exam was performed according to our departmental dose optimization program which includes use of automated exposure control, adjustment of the mA and/or kV according to patient size and/or use of iterative reconstruction technique. Nodule measurements under 10 mm are given as mean value of 3 axes diameters. FINDINGS: Lungs and large airways: Dilated airspaces with large parenchymal blebs bilaterally with smaller blebs more inferiorly. Bilateral thickened septa. Large scar in the right upper lobe with extensions to the pleura, superior right major fissure, and the superior right hilum, with minimal volume loss stable. Nodular scarring abutting the posterior pleura of the left upper lobe, and superior major fissure stable. Stable subpleural solid nodule lateral left upper lobe slightly inferior to the above finding in the superior lingula. Stable calcified granuloma in the subpleural lateral left lower lobe. Pleura and space: Minimal focal thickening. Mediastinum and mounika: evaluation limited by low dose technique and lack of IV contrast. Stable small nodes no new masses. Heart and great vessels: Coronary artery calcifications as well as atherosclerotic changes on the great vessels and several brachiocephalic vessels. Chest wall, lower neck, axillae: Evaluation also limited by same factors as described above. Small lymph nodes. Upper abdomen: Evaluation limited by low-dose technique. Limited also due to patient body habitus. No free air or fluid. Osseous structures: Evaluation limited by low dose MIP technique. Spondylosis as previously described with shoulder and sternoclavicular arthrosis. No lytic lesions. IMPRESSION: Emphysematous changes in both lungs are moderate and stable. Bilateral scarring and nodular scarring is unchanged. No new abnormal nodules. No masses. No new infiltrates. Pleural thickening stable.. [facility] Best Practice Recommendations: please see below for Lung RADS category and FOLLOW-UP.* *Lung RADS category CATEGORY 2- Nodules with a very low likelihood (less than 1%) of becoming a clinically active cancer due to size or lack of growth. Nodules: Perifissural nodule(s) < 10 mm. (526mm3). Solid or part solid nodule(s) less than 6mm (113.1 mm3), new solid nodule less than 4mm (33.5 mm3). Ground glass nodule(s) less than 30mm (57554.2 mm3) or unchanged or slow growing ground glass nodule 30mm or greater. Cat 3 or 4 nodule unchanged for 3 or more months. FOLLOW-UP: Continue annual screening with a Low Dose Chest CT in 12 months for re-evaluation. Electronically signed by: Gael Polo MD 08/16/2019 6:25 PM CDT
== END ==
LOC: CT 14:00
PROVIDERS: ATTEND Family Medicine
DX: Z87.891 Personal history of nicotine dependence (principal); J43.9 Emphysema, unspecified; J98.4 Other disorders of lung